=== PATIENT | male | born 1940 | race Caucasian/White ===

== ENCOUNTER 2018-11-23 11:06 | Inpatient (IN) | payer OTHER, SELFPAY ==
[~2018-11-23] VITALS: Ht 182.9 cm; Wt 111.7 kg
[~2018-11-23 11:06] MED LIST: BISACODYL SUPP10 MG RECTAL; CARAFATE 1 GM TA1 G1 PO; CENTRUM SILVER1 EAC4 PO; FOLIC ACID; HYDROCODONE-AP1 EAC6 PO; ONDANSETRON HCL4 M2 PO; OSTEOBIFLEX; PREDNISONE 5 MG5 M1; PRILOSEC 20 MG20 MG PO; TRAMADOL 50 MG50 MG PO; ZOFRAN ODT4 MG PO
[2018-11-23 11:14] VITALS: BP 178/96
[2018-11-23 11:33] LABS: HEMATOCRIT 48.1 % (42.0-52.0); HEMOGLOBIN 16.6 gm/dL (14.0-18.0); MCH 31.6 pg (26.0-34.0); MCHC 34.5 g/dL (28.0-37.0); MCV 91.6 fL (80.0-100.0); MPV 9.1 fl. (7.2-11.1); NUCLEATED RBCS 0 /100WBC; PLATELET COUNT* 233 thou/uL (150-400); RBC 5.25 mil/uL (4.50-6.00); RDW-CV 13.2 % (10.5-14.5)
[2018-11-23 11:51] LABS: ANION GAP 7 mmol/L (7-16); BUN 21 mg/dL (7-18); CALCIUM 8.7 mg/dL (8.5-10.1); CHLORIDE 105 mmol/L (98-107); CO2 26 mmol/L (21-32); CREATININE 1.3 mg/dL (0.6-1.3); GLUCOSE 100 mg/dL (70-99); SODIUM 138 mmol/L (136-145); TROPONIN-I LEVEL <0.06 ng/mL (<0.06)
[2018-11-23 11:54] LABS: ALBUMIN 3.3 g/dL (3.4-5.0); ALKALINE PHOSPHATASE 47 U/L (46-116); LIPASE 111 U/L (73-393); POTASSIUM 5.6 mmol/L (3.5-5.1); SGOT 33 U/L (15-37); SGPT 29 U/L (30-65); TOTAL BILIRUBIN 0.5 mg/dL (<0.1-1.0); TOTAL PROTEIN 7.1 g/dL (6.4-8.2)
[2018-11-23 12:07] LABS: ABSOLUTE EOSINOPHILS 1.2 thou/uL (0.0-0.7); ABSOLUTE LYMPHOCYTES 1.9 thou/uL (0.8-5.3); ABSOLUTE MONOCYTES 0.3 thou/uL (0.0-1.2); ABSOLUTE NEUTROPHILS 7.6 thou/uL (1.6-8.1); PLATELET ESTIMATE ADEQUATE
[2018-11-23 13:56] LABS: URINE BILIRUBIN NEGATIVE (Negative); URINE BLOOD TRACE (Negative); URINE CLARITY CLEAR; URINE COLOR YELLOW; URINE GLUCOSE-RANDOM NEGATIVE (Negative); URINE KETONES NEGATIVE (Negative); URINE LEUKOCYTES-REFLEX NEGATIVE (Negative); URINE NITRITE-REFLEX NEGATIVE (Negative); URINE PROTEIN NEGATIVE (Negative); URINE SPECIFIC GRAVITY 1.015 (1.005-1.030); URINE UROBILINOGEN 0.2 E.U./dl (0.2-1.0)
[2018-11-23 15:18] VITALS: BP 145/83
--- NOTE | 2018-11-23 15:31 | EKG ---
[place] [address] ELECTROCARDIOGRAM REPORT Name: MAGGIE TSERN Room: [address] ADM IN .R.#: [id number] Admission: 11/23/18 Attend Phys: Jasvir Fountain MD Discharge: Date of : 40 Report #: [id number] THIS REPORT FOR: //name// [facility] ED Test Date: 2018-11-23 Test Time: 11:26:30 Pat Name: MAGGIE STERN Department: Room: [facility] Gender: Play Therapist: MS : 1940 Requested By: Stacey Vickers Order Number: [id number] MD: Duncan Orta Measurements Intervals [place] Rate: 64 P: 31 AK: 161 QRS: 10 QRSD: 114 T: 34 QT: 412 QTc: 425 Interpretive Statements Sinus rhythm Borderline intraventricular conduction delay Abnormal R-wave progression, early transition Compared to ECG 04/23/2015 18:40:48 Sinus tachycardia no longer present Ventricular premature complex(es) no longer present Left ventricular hypertrophy no longer present Electronically Signed On 11-23-2018 15:31:46 CDT by Duncan rOta [email or web address] <ELECTRONICALLY SIGNED> By: Duncan Orta MD, [facility] 11/23/18 1531 [id number] [id number] Duncan Orta MD, [facility] /EPI
[2018-11-23 16:18] VITALS: BP 163/78
[2018-11-23 16:45] VITALS: BP 174/89
[2018-11-23 20:10] VITALS: BP 157/81
[2018-11-24 00:10] VITALS: BP 146/78
[2018-11-24 03:39] VITALS: BP 136/87
[2018-11-24 04:59] LABS: HEMATOCRIT 41.6 % (42.0-52.0); MCHC 34.1 g/dL (28.0-37.0); MPV 9.2 fl. (7.2-11.1); RBC 4.57 mil/uL (4.50-6.00); RDW-CV 13.1 % (10.5-14.5); WBC 10.6 thou/uL (4.0-11.0)
[2018-11-24 05:22] LABS: HEMOGLOBIN 14.2 gm/dL (14.0-18.0)
[2018-11-24 05:25] LABS: CALCIUM 8.3 mg/dL (8.5-10.1); CREATININE 1.5 mg/dL (0.6-1.3); MAGNESIUM 1.7 mg/dL (1.8-2.4)
[2018-11-24 05:26] LABS: POTASSIUM 4.2 mmol/L (3.5-5.1)
[2018-11-24 07:30] VITALS: BP 156/87
[2018-11-24] MEDS ORDERED: BISACODYL SUPP10 MG RECTAL (09:28)
[2018-11-24 12:26] VITALS: BP 144/77
[2018-11-24 15:48] VITALS: BP 144/70
[2018-11-24 19:50] VITALS: BP 158/70
[2018-11-25] VITALS: BP 135/66
[2018-11-25 04:00] VITALS: BP 141/78
[2018-11-25 05:08] LABS: HEMATOCRIT 38.6 % (42.0-52.0); HEMOGLOBIN 13.3 gm/dL (14.0-18.0); MCH 31.7 pg (26.0-34.0); MCHC 34.5 g/dL (28.0-37.0); MCV 91.8 fL (80.0-100.0); MPV 9.6 fl. (7.2-11.1); RBC 4.2 mil/uL (4.50-6.00); RDW-CV 13.2 % (10.5-14.5); WBC 7.8 thou/uL (4.0-11.0)
[2018-11-25 05:35] LABS: CALCIUM 8.2 mg/dL (8.5-10.1); CREATININE 1.5 mg/dL (0.6-1.3); MAGNESIUM 1.9 mg/dL (1.8-2.4); POTASSIUM 3.5 mmol/L (3.5-5.1)
[2018-11-25 07:30] VITALS: BP 170/77
[2018-11-25 08:59] VITALS: BP 170/77
[2018-11-25] MEDS ORDERED: ACIDOPHILUS1 EAC4 PO (09:45)
[2018-11-25] MEDS ORDERED: AUGMENTIN 875-1 EACH PO (09:45)
[2018-11-25] MEDS ORDERED: HYDROCODON-ACE1 EAC7 PO (09:45)
== END 2018-11-25 11:09 | disposition home or self-care (01) | DRG 392 ==
LOC: M.ERS 11:06 → M.TBA-ER 13:45 → M.2W 13:45
PROVIDERS: Nurse Practitioner Family; ADMIT Internal Medicine
DX: K57.20 Diverticulitis of large intestine with perforation and abscess without bleeding (principal); M06.9 Rheumatoid arthritis, unspecified; N18.2 Chronic kidney disease, stage 2 (mild); D17.79 Benign lipomatous neoplasm of other sites; I12.9 Hypertensive chronic kidney disease with stage 1 through stage 4 chronic kidney disease, or unspecified chronic kidney disease; E87.5 Hyperkalemia; Z85.528 Personal history of other malignant neoplasm of kidney; Z79.52 Long term (current) use of systemic steroids; Z90.5 Acquired absence of kidney

== ENCOUNTER 2020-03-15 12:08 | Emergency (ER) | payer MEDICARE ==
[~2020-03-15] VITALS: Ht 182.9 cm; Wt 111.1 kg
[~2020-03-15 12:08] MED LIST changes: +ACIDOPHILUS1 EAC4 PO; +AUGMENTIN 875-1 EACH PO; +HYDROCODON-ACE1 EAC7 PO
[2020-03-15 12:15] VITALS: BP 188/112
[2020-03-15 12:42] LABS: HEMATOCRIT 46.4 % (42.0-52.0); HEMOGLOBIN 16.2 gm/dL (14.0-18.0); MCV 91.4 fL (80.0-100.0); MPV 9.1 fl. (7.2-11.1); NUCLEATED RBCS 0 /100WBC; PLATELET COUNT* 176 thou/uL (150-400); RBC 5.07 mil/uL (4.50-6.00); RDW-CV 13.4 % (10.5-14.5); WBC 12.5 thou/uL (4.0-11.0)
[2020-03-15 13:15] LABS: ALBUMIN 3.4 g/dL (3.4-5.0); CALCIUM 8.7 mg/dL (8.5-10.1); CREATININE 1.5 mg/dL (0.6-1.3); POTASSIUM 4.6 mmol/L (3.5-5.1); TOTAL BILIRUBIN 0.6 mg/dL (<0.1-1.0); TOTAL PROTEIN 7.2 g/dL (6.4-8.2)
[2020-03-15 13:41] LABS: ABSOLUTE EOSINOPHILS 1.1 thou/uL (0.0-0.7); ABSOLUTE LYMPHOCYTES 3.4 thou/uL (0.8-5.3); ABSOLUTE MONOCYTES 0.3 thou/uL (0.0-1.2); ABSOLUTE NEUTROPHILS 7.8 thou/uL (1.6-8.1)
[2020-03-15 13:42] LABS: PLATELET ESTIMATE ADEQUATE
--- NOTE | 2020-03-15 16:34 | EKG ---
[place] [address] ELECTROCARDIOGRAM REPORT Name: MAGGIE STERN Room: [place] [address] ADM IN ..#: [id number] Admission: 03/15/20 Attend Phys: Jasvir Fountain, Discharge: Date of : 40 Date of Service: 03/15/20 1418 Report #: [id number] THIS REPORT FOR: //name// [facility] ED Test Date: 2020-03-15 Test Time: 14:18:49 Pat Name: MAGGIE STERN Department: Room: [facility] Gender: M Master Automotive Technician: : 1940 Requested By: Janes Arora Order Number: [id number] MD: Nikolai Andrea Measurements Intervals [place] Rate: 84 P: 4 MA: 182 QRS: 9 QRSD: 96 T: 3 QT: 378 QTc: 447 Interpretive Statements Sinus rhythm Low voltage, precordial leads Borderline T abnormalities, anterior leads Compared to ECG 11/23/2018 11:26:30 Low QRS voltage now present T-wave abnormality now present Electronically Signed On 03-15-2020 16:34:01 CDT by Nikolai Andrea [email or web address] <ELECTRONICALLY SIGNED> By: Nikolai Andrea MD, FAC 03/15/20 1634 1418 1418 Nikolai Andrea MD, FAC /EPI
[2020-03-15] MEDS ORDERED: FLAGYL500 M1 PO ×2 (17:08→17:11)
[2020-03-15] MEDS ORDERED: CIPROFLOXACIN500 M1 PO ×2 (17:08→17:11)
[2020-03-15] MEDS ORDERED: NORCO 5-325 TA1 EAC2 PO (17:08)
[2020-03-15 17:36] VITALS: BP 169/102
== END 2020-03-15 17:36 | disposition home or self-care (01) ==
LOC: M.ERS 12:08 → M.TBA-ER 15:09 → M.ERS 17:36
PROVIDERS: Family Medicine
DX: K57.20 Diverticulitis of large intestine with perforation and abscess without bleeding (principal); I12.9 Hypertensive chronic kidney disease with stage 1 through stage 4 chronic kidney disease, or unspecified chronic kidney disease; N18.2 Chronic kidney disease, stage 2 (mild); K21.9 Gastro-esophageal reflux disease without esophagitis; M06.9 Rheumatoid arthritis, unspecified; Z20.828 Contact with and (suspected) exposure to other viral communicable diseases; Z85.528 Personal history of other malignant neoplasm of kidney; Z90.5 Acquired absence of kidney

== ENCOUNTER 2021-03-11 11:33 | Emergency (ER) | payer OTHER ==
[~2021-03-11] VITALS: Ht 182.9 cm; Wt 108.9 kg
[~2021-03-11 11:33] MED LIST changes: +CIPROFLOXACIN500 M1 PO; +FLAGYL500 M1 PO; +NORCO 5-325 TA1 EAC2 PO
[2021-03-11] MEDS ORDERED: NABUMETONE 750750 M1 PO (14:52)
[2021-03-11] MEDS ORDERED: HYDROCODON-ACE1 EAC7 PO (15:04)
[2021-03-11 15:24] VITALS: BP 145/80
== END 2021-03-11 15:25 | disposition home or self-care (01) ==
LOC: M.ERS 11:33
DX: S82.832A Other fracture of upper and lower end of left fibula, initial encounter for closed fracture (principal); K21.9 Gastro-esophageal reflux disease without esophagitis; M06.9 Rheumatoid arthritis, unspecified; I12.9 Hypertensive chronic kidney disease with stage 1 through stage 4 chronic kidney disease, or unspecified chronic kidney disease; N18.2 Chronic kidney disease, stage 2 (mild); Z79.899 Other long term (current) drug therapy; Z85.528 Personal history of other malignant neoplasm of kidney; W01.0XXA Fall on same level from slipping, tripping and stumbling without subsequent striking against object, initial encounter; Y93.89 Activity, other specified; Y92.89 Other specified places as the place of occurrence of the external cause; Y99.8 Other external cause status

== ENCOUNTER → 2021-03-16 | Outpatient (CLI) | payer OTHER ==
[~2021-03-16] MED LIST changes: +NABUMETONE 750750 M1 PO
== END ==
LOC: M.LAB 06:46
PROVIDERS: ATTEND Podiatrist Foot & Ankle Surgery
DX: Z20.822 Contact with and (suspected) exposure to COVID-19 (principal)